=== PATIENT | female | born 1995 ===

== ENCOUNTER 2021-03-08 01:57 | Emergency (ER) | payer SELFPAY ==
[~2021-03-08] VITALS: Ht 162.6 cm; Wt 66.0 kg
[2021-03-08 05:07] VITALS: BP 134/58
[2021-03-08] MEDS ORDERED: MAGICMW SSP (05:23)
== END 2021-03-08 05:45 | disposition home or self-care (01) ==
LOC: M ED 01:57
DX: J02.9 Acute pharyngitis, unspecified (principal); B97.4 Respiratory syncytial virus as the cause of diseases classified elsewhere; R53.83 Other fatigue